=== PATIENT | female | born 1980 | race Caucasian/White ===

== ENCOUNTER 2020-12-15 16:50 | Emergency (ER) | payer OTHER ==
[~2020-12-15] VITALS: Ht 160 cm; Wt 68.0 kg
[2020-12-15 17:05] VITALS: BP 109/61
--- NOTE | 2020-12-15 17:14 | NUR ---
SEEN AND EXAMINED BY URSULA BACA.
[2020-12-15] MEDS ORDERED: AMOX/CLAVULANATE 875 MG TABLET ONE (17:20)
[2020-12-15] MEDS ORDERED: KETOROLAC TROMETHAMINE INJ 30 MG/ML VIAL ONE (17:20)
[2020-12-15] MEDS ORDERED: HYDR-4209 PO (17:26)
[2020-12-15] MEDS ORDERED: AMOX-430 PO (17:26)
--- NOTE | 2020-12-15 17:28 | NUR ---
PT SIGNED WAIVER.
[2020-12-15] MEDS ORDERED: AMOX/CLAVULANATE 875 MG TABLET PO ONE (17:30)
[2020-12-15] MEDS ORDERED: KETOROLAC TROMETHAMINE INJ 60 MG/2 ML VIAL IM ONE (17:30)
--- NOTE | 2020-12-15 17:36 | NUR ---
Patient discharged to home in stable condition. Written and verbal after care instructions given. Patient verbalizes understanding of instruction.
== END 2020-12-15 17:39 | disposition home or self-care (01) ==
LOC: ER 17:26
DX: S61.232A Puncture wound without foreign body of right middle finger without damage to nail, initial encounter (principal); S61.234A Puncture wound without foreign body of right ring finger without damage to nail, initial encounter; S61.226A Laceration with foreign body of right little finger without damage to nail, initial encounter; S61.236A Puncture wound without foreign body of right little finger without damage to nail, initial encounter; L08.9 Local infection of the skin and subcutaneous tissue, unspecified; M19.90 Unspecified osteoarthritis, unspecified site; F41.9 Anxiety disorder, unspecified; F32.9 Major depressive disorder, single episode, unspecified; W55.01XA Bitten by cat, initial encounter; Y93.89 Activity, other specified; Y92.89 Other specified places as the place of occurrence of the external cause; Y99.8 Other external cause status
CPT/HCPCS: 96372; 99283; J1885